=== PATIENT | female | born 1970 | race Caucasian/White ===

== ENCOUNTER 2017-02-09 16:15 | Emergency (ER) | payer MEDICAID ==
[2017-02-09 16:25] VITALS: BP 151/100
--- NOTE | 2017-02-09 16:48 | ED Physician Documentation ---
PD HPI BACK PAIN - Stated complaint Stated Complaint: BACK PX - Chief complaint Chief Complaint: Back Pain - History obtained from History obtained from: Patient - History of Present Illness Timing - onset: Chronic (with back surgery November, still regular pain meds. out of meds right now, with Rx coming in mail incouple days. 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 - Present Medications Home Medications: Ambulatory Orders Medication Instructions Recorded Confirmed Fluticasone [Flonase] 1 spray ALTAF DAILY 02/09/17 02/09/17 Ibuprofen 800 mg PO Q4HR 02/09/17 02/09/17 [place] Carbonate 600 mg PO DAILY 02/09/17 02/09/17 Loratadine 10 mg PO DAILY 02/09/17 02/09/17 Methocarbamol [Robaxin] 500 mg PO Q6H PRN #20 tablet 02/09/17 oxyCODONE [Roxicodone] 5 mg PO Q4-6H 02/09/17 02/09/17 oxyCODONE [Roxicodone] 5 mg PO Q4-6H PRN #20 tablet 02/09/17 - Allergies Allergies/Adverse Reactions: Allergies Allergy/AdvReac Type Severity Reaction Status Date / Time acetaminophen [From Tylenol] Allergy Unknown Unverified 02/09/17 16:25 - Social History Does the pt smoke?: Yes Smoking Status: Current some day smoker PD ED PE NORMAL - Vitals Vital signs reviewed: Yes - General General: Alert and oriented X 3, No acute distress, Well developed/nourished - Abdomen Abdomen: Soft, Non tender - Derm Derm: Normal color, Warm and dry, No rash - Extremities Extremities: No deformity, No tenderness to palpate - Neuro Neuro: Alert and oriented X 3, No motor deficit, No sensory deficit Results - Vitals Vitals: Vital Signs - 24 hr 02/09/17 16:21 Temperature 36.1 C L Heart Rate 116 H Respiratory 14 Rate Blood Pressure 151/100 H O2 Saturation 100 Oxygen O2 Source Room air PD MEDICAL DECISION MAKING - ED course Complexity details: considered differential ( ), d/w patient Departure - Departure Disposition: 01 Home, Self Care Clinical Impression: Back pain Qualifiers: Back pain location: low back pain Chronicity: chronic Back pain laterality: bilateral Sciatica presence: without sciatica Qualified Code(s): M54.5 - Low back pain Condition: Stable Record reviewed to determine appropriate education?: Yes Instructions: ED Low Back Pain Injury Prescriptions: Methocarbamol [Robaxin] 500 mg PO Q6H PRN #20 tablet PRN Reason: Spasms oxyCODONE [Roxicodone] 5 mg PO Q4-6H PRN #20 tablet PRN Reason: Pain Comments: Continue usual medications of pain medicine every 4-6 hours as needed. Consider adding methocarbamol muscle relaxant every 6 hours if needed for stiffness or muscle pulling. Heat and gentle stretching for the area to loosen up scar tissue. Follow-up with your primary care if persistently worse. Discharge Date/Time: 02/09/17 17:11
[2017-02-09] MEDS ORDERED: oxyCODONE 5 MG TABLET PO STA (16:57)
[2017-02-09] MEDS ORDERED: oxyCODONE 5 MG TABLET ONE (17:10)
== END 2017-02-09 17:11 | disposition home or self-care (01) ==
LOC: EDUNIT# → ED 16:15
DX: M54.5 Low back pain (principal); F17.200 Nicotine dependence, unspecified, uncomplicated
CPT/HCPCS: 99282; 99283; A9270

== ENCOUNTER 2017-03-23 10:32 | Emergency (ER) | payer MEDICAID ==
[2017-03-23 10:45] VITALS: BP 149/82
--- NOTE | 2017-03-23 11:00 | ED Physician Documentation ---
History of Present Illness - Stated complaint Stated Complaint: BACK PX - Chief complaint Chief Complaint: Back Pain - History obtained from History obtained from: Patient - History of Present Illness Timing: Chronic Pain level max: 6 Pain level now: 6 Improved by: Remaining still Worsened by: Movement - Additonal information Additional information: Patient is a 47-year-old female who presents to the emergency department with chronic low back pain, status post posterior lumbar fusion 3 weeks ago in [place]. States that she ran out of her tizanidine and would like a refill of her medication. No fevers. No weakness, no numbness, no tingling. 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: Tubal ligation - Present Medications Home Medications: Ambulatory Orders Medication Instructions Recorded Confirmed Fluticasone [Flonase] 1 spray ALTAF DAILY 02/09/17 03/23/17 Ibuprofen 800 mg PO Q4HR 02/09/17 03/23/17 [place] Carbonate 600 mg PO DAILY 02/09/17 03/23/17 Loratadine 10 mg PO DAILY 02/09/17 03/23/17 tiZANidine [Zanaflex] 4 - 8 mg PO Q8H PRN #45 tablet 03/23/17 - Allergies Allergies/Adverse Reactions: Allergies Allergy/AdvReac Type Severity Reaction Status Date / Time acetaminophen [From Tylenol] Allergy Unknown Unverified 02/09/17 16:25 erythromycin base Allergy Unknown Verified 03/23/17 10:46 penicillinase Allergy Unknown Verified 03/23/17 10:46 Sulfa (Sulfonamide Allergy Unknown Verified 03/23/17 10:46 Antibiotics) - Social History Does the pt smoke?: Yes Smoking Status: Current every day smoker PD ED PE NORMAL - Vitals Vital signs reviewed: Yes - General General: Alert and oriented X 3, No acute distress, Well developed/nourished - HEENT HEENT: Moist mucous membranes - Neck Neck: Supple, no meningeal sign, No bony TTP - Cardiac Cardiac: RRR - Respiratory Respiratory: No respiratory distress, Clear bilaterally - Abdomen Abdomen: Soft, Non tender, Non distended - Back Back: Other (No midline tenderness to palpation. There is mild paraspinal muscle spasm present bilateral lower lumbar. Incision is clean dry and intact without signs of infection.) - Derm Derm: Warm and dry - Extremities Extremities: No calf tenderness / cord - Neuro Neuro: Alert and oriented X 3, No motor deficit, No sensory deficit - Psych Psych: Normal mood, Normal affect Results - Vitals Vitals: Vital Signs - 24 hr 03/23/17 10:41 Temperature 36.4 C L Heart Rate 101 H Respiratory 16 Rate Blood Pressure 149/82 H O2 Saturation 100 Oxygen O2 Source Room air PD MEDICAL DECISION MAKING - ED course Complexity details: considered differential (no cauda equina, no spinal epidural abscess, no fracture, no aortic dissection or evidence of aneursym rupture), d/w patient ED course: Patient is a 47-year-old female status post low back surgery 3 weeks ago, will refill her tizanidine for her and have her follow-up with her PCP for further evaluation and care. No acute neurological deficits. No fevers. Ambulating without difficulty. Normal neurological exam. Patient counseled regarding signs and symptoms for which I believe and urgent re-evaluation would be necessary. Patient with good understanding of and agreement to plan and is comfortable going home at this time This document was made in part using voice recognition software. While efforts are made to proofread this document, sound alike and grammatical errors may occur. Departure - Departure Disposition: 01 Home, Self Care Clinical Impression: Back muscle spasm Condition: Good Instructions: ED Back Care Tips, ED Exercises Lumbar Muscles Follow-Up: your,doctor in 1 week [Other] Prescriptions: tiZANidine [Zanaflex] 4 - 8 mg PO Q8H PRN #45 tablet PRN Reason: back spasm Comments: Return if you worsen. Take the tizanidine as prescribed at home. Do not drive or operate heavy machinery while taking the tizanidine. Discharge Date/Time: 03/23/17 11:03
== END 2017-03-23 11:03 | disposition home or self-care (01) ==
LOC: ED 10:32
DX: M62.830 Muscle spasm of back (principal); G89.29 Other chronic pain; F17.200 Nicotine dependence, unspecified, uncomplicated
CPT/HCPCS: 99283

== ENCOUNTER 2017-03-25 09:13 | Emergency (ER) | payer SELFPAY ==
[2017-03-25 10:35] VITALS: BP 110/62
[2017-03-25] MEDS ORDERED: DEXAMETHASONE 10 MG/ML VIAL PO STA (11:01)
[2017-03-25] MEDS ORDERED: KETOROLAC 60 MG/2 ML VIAL IM STA (11:01)
--- NOTE | 2017-03-25 11:04 | ED Physician Documentation ---
PD HPI BACK PAIN - Stated complaint Stated Complaint: BACK PX/POST SURG - Chief complaint Chief Complaint: Back Pain - History obtained from History obtained from: Patient - History of Present Illness Timing - onset: How many weeks ago (4) Timing - duration: Weeks (4) Timing - details: Gradual onset, Still present Location: Lower, Right Quality: Pain, Spasm, Sharp Associated symptoms: Numbness. No: Fever, Weakness, Incontinent of urine, Unable to urinate, Hematuria, Incontinent of stool Improves with: Rest, Ice, Position, Meds Worsened by: Movement Contributing factors: Other (moved on feb 23) Similar symptoms before: Diagnosis (lumbar disc disease) Recently seen: Emergency Dept - Additional information Additional information: 47-year-old female has had lumbar disc disease and she had a lumbar fusion done in November of this year and [place]. She was recovering well and has decided to go back to work and she has moved to [facility] from [place]. She moved on 23 February and with that move she developed some increase in her back pain that was improved. Since then she has had increasing pain over the past month. She was seen in the emergency department 2 days ago and placed back on her tizanidine. Her pain today is worse.She has not been on pain medication for about 10 days Review of Systems Constitutional: denies: Fever, Chills, Myalgias, Fatigue Eyes: denies: Decreased vision Ears: denies: Ear pain Nose: denies: Congestion Throat: denies: Sore throat Cardiac: denies: Chest pain / pressure, Palpitations Respiratory: denies: Dyspnea, Cough GI: denies: Abdominal Pain, Nausea, Vomiting : denies: Dysuria, Frequency Skin: denies: Rash Musculoskeletal: reports: Back pain. 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 - Present Medications Home Medications: Ambulatory Orders Medication Instructions Recorded Confirmed Ibuprofen 800 mg PO Q4HR 02/09/17 03/23/17 [place] Carbonate 600 mg PO DAILY 02/09/17 03/23/17 tiZANidine [Zanaflex] 4 - 8 mg PO Q8H PRN #45 tablet 03/23/17 - Allergies Allergies/Adverse Reactions: Allergies Allergy/AdvReac Type Severity Reaction Status Date / Time acetaminophen [From Tylenol] Allergy Unknown Unverified 02/09/17 16:25 erythromycin base Allergy Unknown Verified 03/23/17 10:46 penicillinase Allergy Unknown Verified 03/23/17 10:46 Sulfa (Sulfonamide Allergy Unknown Verified 03/23/17 10:46 Antibiotics) - Social History Does the pt smoke?: Yes Smoking Status: Current every day smoker PD ED PE NORMAL - Vitals Vital signs reviewed: Yes (Normal) - General General: No acute distress, Well developed/nourished - HEENT HEENT: Atraumatic, PERRL, EOMI - Neck Neck: Supple, no meningeal sign, No bony TTP - Respiratory Respiratory: No respiratory distress - Back Back: No CVA TTP, Other (There is a surgical scar in each side of the lower lumbar spine with incisions that appear to be healing well without signs of inflammation. There is no mass to the area there is no fluctuance or erythema. There is some mild generalized tenderness to the area.) - Derm Derm: Normal color, Warm and dry, No rash - Extremities Extremities: No deformity, No edema - Neuro Neuro: No motor deficit, No sensory deficit - Psych Psych: Normal mood, Normal affect Results - Vitals Vitals: Vital Signs - 24 hr 03/25/17 03/25/17 09:24 10:34 Temperature 36.9 C 36.4 C L Heart Rate 80 65 Respiratory 16 12 Rate Blood Pressure 127/78 110/62 O2 Saturation 100 99 Oxygen O2 Source Room air PD MEDICAL DECISION MAKING - ED course Complexity details: considered differential, d/w patient ED course: This 47 y/o female has lumbar disease and acute pain. She is given PO decadron and toradal and she left AMA. Departure - Departure Disposition: 07 Against Medical Advice Condition: Stable Discharge Date/Time: 03/25/17 11:39
[2017-03-25] MEDS ORDERED: KETOROLAC 60 MG/2 ML VIAL ONE (11:12)
[2017-03-25] MEDS ORDERED: CHERRY SYRUP 10 ML UDC PO ONE (11:13)
[2017-03-25] MEDS ORDERED: DEXAMETHASONE 10 MG/ML VIAL ONE (11:13)
--- NOTE | 2017-03-25 11:37 | XRAY Preliminary Report ---
Exam: XR Lumbar Spine 2 View IMPRESSION: 1. No acute lumbar spine abnormalities are identified. 2. Status post L4-L5 posterior fusion and diskectomy. 3. Mild degenerative changes at L3-L4. [facility] SITE ID: [id number]
--- NOTE | 2017-03-25 11:40 | XRAY Report ---
EXAM: LUMBOSACRAL SPINE RADIOGRAPHY EXAM DATE: 03/25/2017 11:28 AM. CLINICAL HISTORY: History of L4-L5 fusion in November 2016. Increasing pain with numbness down the back s joel of right leg. COMPARISONS: None. TECHNIQUE: 3 views. FINDINGS: Alignment: Mild levoscoliosis of the lumbar spine. Anterolisthesis of L4 on L5 measuring 4.5 mm. Retr olisthesis of L3 on L4 measuring 2 mm. Bones: Five [id number] lumbar vertebral bodies are present. No acute fracture or bony lesion. Mi ld degenerative spurring. Disks: Status post posterior L4-L5 fusion and intervertebral disk replacement. No evidence of hardwar e failure or fracture. Mild L3-L4 intervertebral disk degenerative changes. Facets: Debbie facet arthropathy. Sacroiliac Joints: Unremarkable. Soft Tissues: Clips are seen overlying the pelvis. No bowel obstruction. Lung bases are clear. Densit y possible calcific density projects over the left mid abdomen medially. IMPRESSION: 1. No acute lumbar spine abnormalities are identified. 2. Status post L4-L5 posterior fusion and diskectomy. 3. Mild degenerative changes at L3-L4. [facility] Referring Provider Line: [phone] SITE ID: [id number]
== END 2017-03-25 11:39 | disposition left against medical advice (07) ==
LOC: ED 09:13
DX: M51.36 Other intervertebral disc degeneration, lumbar region (principal); M54.5 Low back pain; G89.29 Other chronic pain; Z53.29 Procedure and treatment not carried out because of patient's decision for other reasons; Z98.890 Other specified postprocedural states; Z98.1 Arthrodesis status; F17.200 Nicotine dependence, unspecified, uncomplicated
CPT/HCPCS: 72100; 96372; 99283; 99284; A9270